=== PATIENT | male | born 1985 | race Caucasian/White ===

== ENCOUNTER → 2016-12-25 | Outpatient (CLI) | payer OTHER ==
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
== END | disposition home or self-care (01) ==
LOC: RADMRIMAIN 08:07
PROVIDERS: ATTEND Family Medicine
DX: S83.242A Other tear of medial meniscus, current injury, left knee, initial encounter (principal)

== ENCOUNTER 2019-01-27 11:32 | Emergency (ER) | payer OTHER ==
[2019-01-27 11:35] VITALS: BP 152/79; PULSE 90; RESP 20; TEMP 97.9
[2019-01-27] MEDS ORDERED: KETOROLAC 60 MG/2 ML VIAL IM STA (11:43)
[2019-01-27] MEDS ORDERED: DIAZEPAM 5 MG/ML 2 ML INJ IM STA (11:43)
--- NOTE | 2019-01-27 12:12 | ED ---
Extremity Problem HPI - General Chief complaint: Extremity Problem,Nontraumatic Stated complaint: right hip pain Time Seen by Provider: 01/27/19 11:36 Source: patient, RN notes reviewed Mode of arrival: ambulatory Limitations: no limitations - History of Present Illness Initial comments: 33-year-old male presents emergency Department chief complaint of right leg pain, right hip pain. Patient states that he's been having increasing pain last couple days,'s states that he's been having spasms. He denies any bowel bladder incontinence or retention does have some mild back discomfort. Patient states that he took some Tylenol. Reports no fevers or chills has no dysuria no abdominal complaints. 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 - Related Data Home Medications Medication Instructions Recorded Confirmed Naproxen Sodium [Aleve] 2,200 mg PO DAILY PRN 01/27/19 01/27/19 Previous Rx's Medication Instructions Recorded Cyclobenzaprine [Flexeril] 10 mg PO TID PRN #15 tab 01/27/19 Ketorolac [Toradol] 10 mg PO Q8HR #15 tab 01/27/19 Allergies Allergy/AdvReac Type Severity Reaction Status Date / Time No Known Allergies Allergy Verified 01/27/19 11:57 Review of Systems ROS Statement: Those systems with pertinent positive or pertinent negative responses have been documented in the HPI. ROS Other: All systems not noted in ROS Statement are negative. Past Medical History Past Medical History: No Reported History History of Any Multi-Drug Resistant Organisms: None Reported Past Surgical History: Orthopedic Surgery Additional Past Surgical History / Comment(s): lt knee surgery Past Psychological History: No Psychological Hx Reported Smoking Status: Current every day smoker Past Alcohol Use History: Occasional Past Drug Use History: None Reported General Exam Limitations: no limitations General appearance: alert, in no apparent distress Head exam: Present: atraumatic, normocephalic, normal inspection Neck exam: Present: normal inspection, full ROM. Absent: tenderness, meningismus, lymphadenopathy Respiratory exam: Present: normal lung sounds bilaterally. Absent: respiratory distress, wheezes, rales, rhonchi, stridor Cardiovascular Exam: Present: regular rate, normal rhythm, normal heart sounds. Absent: systolic murmur, diastolic murmur, rubs, gallop, clicks GI/Abdominal exam: Present: soft, normal bowel sounds. Absent: distended, tenderness, guarding, rebound, rigid Extremities exam: Present: other (Pain with Richard's test, right hip mildly tender, no erythema redness discoloration equal pulses patient has pain with range of motion the right leg.) Neurological exam: Present: alert, oriented X3, CN II-XII intact, reflexes normal. Absent: motor sensory deficit Skin exam: Present: warm, dry, intact, normal color. Absent: rash Course Vital Signs 01/27/19 11:33 Temperature 97.9 F Pulse Rate 90 Respiratory 20 Rate Blood Pressure 152/79 O2 Sat by Pulse 99 Oximetry Medical Decision Making - Medical Decision Making 33-year-old male presents emergency Department chief complaint right hip pain and spasms. Patient did have x-rays which unremarkable. Patient was given Toradol emergency from which alleviated some of the symptoms. Patient discharged with oral Toradol, Flexeril. Patient will follow-up with orthopedics and return for any worsening symptoms. Disposition Clinical Impression: Hip pain, Muscle spasm of right leg Disposition: HOME SELF-CARE Condition: Stable Instructions (If sedation given, give patient instructions): Muscle Spasm (ED) Additional Instructions: Please return to the Emergency Department if symptoms worsen or any other concerns. Prescriptions: Cyclobenzaprine [Flexeril] 10 mg PO TID PRN #15 tab PRN Reason: Muscle Spasm Ketorolac [Toradol] 10 mg PO Q8HR #15 tab Is patient prescribed a controlled substance at d/c from ED?: No Referrals: Demetris De Paz MD [Primary Care Provider] - 1-2 days Kermit Hutchison MD [Medical Doctor] - 1-2 days Time of Disposition: 12:19
--- NOTE | 2019-01-27 12:18 | XR ---
EXAMINATION TYPE: XR Hip RT and AP Pelvis DATE OF EXAM: 01/27/2019 COMPARISON: Prior pelvic x-ray December 21, 2015 HISTORY: Pelvic and right hip pain. TECHNIQUE: A single AP view of the pelvis is obtained. Two views of the right hip are obtained. FINDINGS: There is no acute fracture/dislocation evident in the pelvis. The hip and sacroiliac join ts appear symmetric and unremarkable. The overlying soft tissue appears unremarkable. Two views of right hip show no acute fracture or dislocation. No focal lytic or sclerotic lesion see n in the proximal right femur. The overlying soft tissue is unremarkable. IMPRESSION: Unremarkable study.
== END 2019-01-27 12:32 | disposition home or self-care (01) ==
LOC: EC 11:32
DX: M25.551 Pain in right hip (principal); M62.838 Other muscle spasm; F17.200 Nicotine dependence, unspecified, uncomplicated
CPT/HCPCS: 73502; 99283; 96372 ×2; J3360; J1885